=== PATIENT | female | born 1985 | race American Indian/Alaskan Native ===

== ENCOUNTER 2017-04-09 08:26 | Emergency (ER) | payer MEDICAID, OTHER ==
[2017-04-09 11:14] VITALS: BP 138/89
--- NOTE | 2017-04-09 12:07 | Emergency Department Report ---
ED ENT HPI - General Chief complaint: Sore Throat Stated complaint: SORE THROAT Time Seen by Provider: 04/09/17 11:33 Source: patient Mode of arrival: Ambulatory Limitations: No Limitations - History of Present Illness Initial comments: 31-year-old female presents today complaining of sore throat 3 days. Admits to pain with swallowing. Patient has history of tonsillitis and states usually unilateral. Positive for subjective fever and postnasal drip. Also complaining of left-sided earache. Patient denies cough, chills, nausea, vomiting, chest pain, shortness of breath, abdominal pain. She has not tried taking any medication for symptomatic relief. Rates her pain as 8 out of 10. MD complaint: sore throat, ear pain Onset/Timin -: hour(s), days(s) Location: L ear, throat Severity scale (0 -10): 8 Consistency: constant Worsens with: swallowing, eating Associated Symptoms: fever (subjective), pain with swallowing, sore throat. denies: cough, toothache, tinnitus, discharge from ear, rhinorrhea - Related Data Previous Rx's Medication Instructions Recorded Last Taken Type Cyclobenzaprine [Flexeril] 10 mg PO TID PRN #10 tablet 01/16/17 Unknown Rx methylPREDNISolone [Medrol] 4 mg PO DAILY #1 tab.ds.pk 01/16/17 Unknown Rx traMADol [Ultram] 50 mg PO Q6HR PRN #12 tablet 01/16/17 Unknown Rx Amoxicillin/Potassium Clav 1 each PO BID #20 tablet 04/09/17 Unknown Rx [Augmentin 875-125 Tablet] Lidocaine Viscous 2% 15 ml MM TID 2 Days #90 udc 04/09/17 Unknown Rx Allergies Allergy/AdvReac Type Severity Reaction Status Date / Time No Known Allergies Allergy Unverified 01/16/17 14:37 ED Dental HPI - General Chief complaint: Sore Throat Stated complaint: SORE THROAT Time Seen by Provider: 04/09/17 11:33 Source: patient Mode of arrival: Ambulatory Limitations: No Limitations - Related Data Previous Rx's Medication Instructions Recorded Last Taken Type Cyclobenzaprine [Flexeril] 10 mg PO TID PRN #10 tablet 01/16/17 Unknown Rx methylPREDNISolone [Medrol] 4 mg PO DAILY #1 tab.ds.pk 01/16/17 Unknown Rx traMADol [Ultram] 50 mg PO Q6HR PRN #12 tablet 01/16/17 Unknown Rx Amoxicillin/Potassium Clav 1 each PO BID #20 tablet 04/09/17 Unknown Rx [Augmentin 875-125 Tablet] Lidocaine Viscous 2% 15 ml MM TID 2 Days #90 udc 04/09/17 Unknown Rx Allergies Allergy/AdvReac Type Severity Reaction Status Date / Time No Known Allergies Allergy Unverified 01/16/17 14:37 ED Review of Systems ROS: Stated complaint: SORE THROAT Other details as noted in HPI Constitutional: fever. denies: chills, malaise Eyes: denies: eye pain ENT: ear pain, throat pain. denies: congestion Respiratory: denies: cough, shortness of breath, wheezing Cardiovascular: denies: chest pain, palpitations Endocrine: no symptoms reported Gastrointestinal: denies: abdominal pain, nausea, vomiting Skin: denies: rash, lesions Neurological: denies: headache, weakness, numbness, paresthesias ED Past Medical Hx - Past Medical History Previous Medical History?: No Hx Hypertension: Yes (boarderline) - Surgical History Past Surgical History?: No - Social History Smoking Status: Current Every Day Smoker Substance Use Type: Alcohol - Medications Home Medications: Home Medications Medication Instructions Recorded Confirmed Last Taken Type Cyclobenzaprine [Flexeril] 10 mg PO TID PRN #10 tablet 01/16/17 Unknown Rx methylPREDNISolone [Medrol] 4 mg PO DAILY #1 tab.ds.pk 01/16/17 Unknown Rx traMADol [Ultram] 50 mg PO Q6HR PRN #12 tablet 01/16/17 Unknown Rx Amoxicillin/Potassium Clav 1 each PO BID #20 tablet 04/09/17 Unknown Rx [Augmentin 875-125 Tablet] Lidocaine Viscous 2% 15 ml MM TID 2 Days #90 udc 04/09/17 Unknown Rx ED Physical Exam - General Limitations: No Limitations General appearance: alert, in no apparent distress - Head Head exam: Present: atraumatic, normocephalic - Eye Eye exam: Present: normal appearance, PERRL - ENT ENT exam: Present: TM's normal bilaterally - Expanded ENT Exam Expanded Ear exam: Present: normal external inspection Mouth exam: Absent: drooling, trismus, muffled voice Throat exam: Positive: tonsillomegaly (left sided), tonsillar exudate (left sided), other (uvula midline) - Neck Neck exam: Present: lymphadenopathy (left anterior cervical) - Respiratory Respiratory exam: Present: normal lung sounds bilaterally - Cardiovascular Cardiovascular Exam: Present: regular rate, normal rhythm - GI/Abdominal GI/Abdominal exam: Present: soft. Absent: tenderness, guarding, rebound - Extremities Exam Extremities exam: Present: normal inspection, full ROM - Neurological Exam Neurological exam: Present: alert, oriented X3 - Skin Skin exam: Present: warm, dry ED Course Vital Signs 04/09/17 04/09/17 04/09/17 09:00 11:08 11:14 Temperature 98.7 F 99.3 F Pulse Rate 100 H 97 H 97 H Respiratory 16 Rate Blood Pressure 125/84 138/89 Blood Pressure 138/89 [Right] O2 Sat by Pulse 97 94 94 Oximetry ED Medical Decision Making - Lab Data Vital Signs 04/09/17 04/09/17 04/09/17 09:00 11:08 11:14 Temperature 98.7 F 99.3 F Pulse Rate 100 H 97 H 97 H Respiratory 16 Rate Blood Pressure 125/84 138/89 Blood Pressure 138/89 [Right] O2 Sat by Pulse 97 94 94 Oximetry - Medical Decision Making 31-year-old female presents today complaining of sore throat 3 days. On exam she has left-sided tonsillomegaly with tonsillar exudates. Uvula is midline and denies drooling. Her rapid strep test is negative. Patient is in no acute distress at this time. She will be discharged home and is encouraged to follow up with a primary care provider. She will be sent home on Augmentin and is encouraged to return to the emergency room for any worsening symptoms. Critical care attestation.: If time is entered above; I have spent that time in minutes in the direct care of this critically ill patient, excluding procedure time. ED Disposition Clinical Impression: Tonsillitis Disposition: DC-01 TO HOME OR SELFCARE Is pt being admited?: No Does the pt Need Aspirin: No Condition: Stable Instructions: Tonsillitis (ED) Additional Instructions: Alternate Tylenol and Motrin for fever and pain. Follow-up with primary care provider in the next one to 3 days. Return to the emergency department if symptoms worsen. Prescriptions: Amoxicillin/Potassium Clav [Augmentin 875-125 Tablet] 1 each PO BID #20 tablet Lidocaine Viscous 2% 15 ml MM TID 2 Days #90 udc Referrals: RAQUEL BRIAN MD [Primary Care Provider] - 3-5 Days LIAM CHRISTIAN MD [Staff Physician] - 3-5 Days Forms: Work/School Release Form(ED) Time of Disposition: 12:12
== END 2017-04-09 12:21 | disposition home or self-care (01) ==
LOC: ED 08:26
DX: J03.90 Acute tonsillitis, unspecified (principal); F17.200 Nicotine dependence, unspecified, uncomplicated
CPT/HCPCS: 87116; 87430; 99282